=== PATIENT | male | born 1950 | race Caucasian/White ===

== ENCOUNTER 2018-04-06 11:50 | Inpatient (IN) | payer OTHER ==
[2018-04-06] VITALS (8 sets, daily range): BP systolic 109–150; BP diastolic 64–89
[~2018-04-06] VITALS: Ht 188 cm; Wt 119.3 kg
[2018-04-06 13:23] LABS: ALBUMIN 3.4 g/dL (3.2-4.8); CHLORIDE 109 mEq/L (99-109); POTASSIUM 4.6 mEq/L (3.7-5.4); SODIUM 138 mEq/L (136-147)
[2018-04-06 13:24] LABS: INTER. NORMALIZED RATIO 1.4
[2018-04-06 13:25] LABS: GLUCOSE 167 mg/dL (70-99)
[2018-04-06 13:26] LABS: PTT 21.8 SEC (25-37); TOTAL PROTEIN 5.9 g/dL (6.4-8.3)
[2018-04-06 13:27] LABS: TOTAL BILIRUBIN 0.8 mg/dL (0.0-1.0)
[2018-04-06 13:29] LABS: ALKALINE PHOSPHATASE 65 IU/L (3-129); CREATININE 3.8 mg/dL (0.6-1.3); GFR ESTIMATE (CALCULATED) 17 mL/min/ (58.99-99999)
[2018-04-06 13:30] LABS: UREA NITROGEN (BUN) 39 mg/dL (9-23)
[2018-04-06 13:31] LABS: AST (GOT) 12 IU/L (2-34)
[2018-04-06 13:32] LABS: ALT (GPT) 9 IU/L (3-49)
[2018-04-06 13:35] LABS: TROP-I INTERPRETATION NEGATIVE; TROPONIN-I 0.03 ng/mL (0.0-0.30)
[2018-04-06 13:36] LABS: APPEARANCE TURBID ((CLEAR)); BILIRUBIN NEGATIVE; BLOOD LARGE; GLUCOSE (STRIP) NEGATIVE; KETONES NEGATIVE; LEUKOCYTES NEGATIVE; NITRITE NEGATIVE; PROTEIN (STRIP) >=500; SPECIFIC GRAVITY 1.037 (1.000-1.030); UROBILINOGEN 0.2 MG/DL (0.2-1.0)
[2018-04-06 13:37] LABS: COLOR RED ((YELLOW)); RED BLOOD CELLS TNTC /HPF (0-5); UCUL ADDED? YES
[2018-04-06 13:40] LABS: BASOPHIL (%) 0.1 % (0-1); EOSINOPHIL (%) 0.1 % (0-5); HEMATOCRIT 16.1 % (38.0-50.0); MCH 24.7 PG (29.0-34.0); MCHC 29.8 G/DL (30.0-36.0); MONOCYTE (%) 7.7 % (3-12); MONOCYTE COUNT 1.3 K/uL (0-0.8); NEUTROPHIL (%) 85.1 % (45-76); NEUTROPHIL COUNT 14.8 K/uL (1.8-6.4); NRBC (%) 0.2 /100 WBC (0-0); PLATELET COUNT 337 K/uL (156-360); RBC DIS.WIDTH-CV 16.1 % (11.8-14.6); RBC DIS.WIDTH-SD 48.7 % (39-53); RED BLOOD COUNT 1.94 M/uL (4.00-5.50); WHITE BLOOD COUNT 17.4 K/uL (4.1-10.2)
[2018-04-06 13:50] LABS: HEMOGLOBIN 4.8 G/DL (12.5-16.6)
[2018-04-06 17:20] LABS: IMM.RETIC FRACTION 44.6 % (3-19); RETIC HGB EQUIVALENT 20.7 (28-36)
[2018-04-06 17:45] LABS: IRON 14 MCG/DL (35-150); TRANSFERRIN (TIBC) 275.7 mg/dL (215-380); TRANSFERRIN SATUR. 5 % (20-55)
[2018-04-06 17:46] LABS: INTACT PARATHYROID HORMONE 130 pg/mL (10-69)
[2018-04-06 17:53] LABS: THYROTROPIN (TSH) 4.4 MIU/L (0.4-5.5)
[2018-04-06 17:59] LABS: FERRITIN 17 NG/ML (22-322)
[2018-04-06 18:53] LABS: LACTATE DEHYDROGENASE 245 IU/L (20-246)
[2018-04-06 22:20] LABS: URINE TOTAL PROTEIN 154 MG/DL (0-10)
[2018-04-07] VITALS (11 sets, daily range): BP systolic 98–137; BP diastolic 54–88
[2018-04-07 06:42] LABS: MCH 25.7 PG (29.0-34.0); MCHC 30.9 G/DL (30.0-36.0); MCV 83.3 FL (86-99); NRBC (%) 0.5 /100 WBC (0-0); PLATELET COUNT 251 K/uL (156-360); RBC DIS.WIDTH-CV 15.4 % (11.8-14.6); RBC DIS.WIDTH-SD 46.5 % (39-53); WHITE BLOOD COUNT 17.1 K/uL (4.1-10.2)
[2018-04-07 06:43] LABS: HEMOGLOBIN 7.1 G/DL (12.5-16.6); RED BLOOD COUNT 2.76 M/uL (4.00-5.50)
[2018-04-07 06:59] LABS: CHLORIDE 107 MEQ/L (99-109); GFR ESTIMATE (CALCULATED) 14 mL/min/ (58.99-99999); GLUCOSE 121 mg/dL (70-99); PHOSPHORUS 5.1 mg/dL (2.5-4.9); POTASSIUM 4.7 MEQ/L (3.7-5.4); SODIUM 139 MEQ/L (136-147); UREA NITROGEN (BUN) 52 mg/dL (9-23)
[2018-04-07 07:00] LABS: CREATININE 4.6 MG/DL (0.6-1.3)
[2018-04-07 11:57] LABS: HEMATOCRIT 24.7 % (38.0-50.0); HEMOGLOBIN 7.9 G/DL (12.5-16.6); MCH 27.2 PG (29.0-34.0); MCV 85.2 FL (86-99); NRBC (%) 0.4 /100 WBC (0-0); PLATELET COUNT 215 K/uL (156-360); RBC DIS.WIDTH-CV 15.7 % (11.8-14.6); RBC DIS.WIDTH-SD 48.4 % (39-53); WHITE BLOOD COUNT 17.3 K/uL (4.1-10.2)
[2018-04-08] VITALS (10 sets, daily range): BP systolic 95–122; BP diastolic 51–68
[2018-04-08 06:02] LABS: CHLORIDE 109 MEQ/L (99-109); GFR ESTIMATE (CALCULATED) 24 mL/min/ (58.99-99999); GLUCOSE 109 mg/dL (70-99); POTASSIUM 4.6 MEQ/L (3.7-5.4); SODIUM 138 MEQ/L (136-147); UREA NITROGEN (BUN) 47 mg/dL (9-23)
[2018-04-08 06:10] LABS: CREATININE 2.8 MG/DL (0.6-1.3)
[2018-04-08 06:46] LABS: HEMATOCRIT 22.8 % (38.0-50.0); HEMOGLOBIN 7.3 G/DL (12.5-16.6); MCH 27.2 PG (29.0-34.0); MCV 85.1 FL (86-99); NRBC (%) 0.3 /100 WBC (0-0); PLATELET COUNT 189 K/uL (156-360); RBC DIS.WIDTH-CV 15.9 % (11.8-14.6); RBC DIS.WIDTH-SD 49.7 % (39-53); RED BLOOD COUNT 2.68 M/uL (4.00-5.50); WHITE BLOOD COUNT 13.2 K/uL (4.1-10.2)
[2018-04-08 12:23] LABS: HEMOGLOBIN A1c (GLYCOHEMOGLOB) 5.3 % (Below 5.7)
[2018-04-09] VITALS (11 sets, daily range): BP systolic 95–122; BP diastolic 49–71
[2018-04-09 05:26] LABS: HEMATOCRIT 23.3 % (38.0-50.0); HEMOGLOBIN 7.3 G/DL (12.5-16.6); MCH 26.6 PG (29.0-34.0); MCHC 31.3 G/DL (30.0-36.0); NRBC (%) 0.2 /100 WBC (0-0); PLATELET COUNT 161 K/uL (156-360); RBC DIS.WIDTH-CV 16.2 % (11.8-14.6); RBC DIS.WIDTH-SD 49.6 % (39-53); RED BLOOD COUNT 2.74 M/uL (4.00-5.50); WHITE BLOOD COUNT 11.9 K/uL (4.1-10.2)
[2018-04-09 05:49] LABS: CHLORIDE 109 MEQ/L (99-109); CREATININE 1.7 MG/DL (0.6-1.3); GFR ESTIMATE (CALCULATED) 43 mL/min/ (58.99-99999); GLUCOSE 90 mg/dL (70-99); SODIUM 139 MEQ/L (136-147); UREA NITROGEN (BUN) 31 mg/dL (9-23)
[2018-04-10] VITALS (7 sets, daily range): BP systolic 104–137; BP diastolic 59–96
[2018-04-10 05:57] LABS: BASOPHIL (%) 0.3 % (0-1); EOSINOPHIL (%) 2.7 % (0-5); EOSINOPHIL COUNT 0.3 K/uL (0-0.3); HEMATOCRIT 29.4 % (38.0-50.0); IMMATURE GRANULOCYTE (%) 1.1 % (0.0-0.7); LYMPHOCYTE COUNT 1.3 K/uL (1.0-2.8); MCH 27.4 PG (29.0-34.0); MCV 85.7 FL (86-99); MONOCYTE (%) 8.2 % (3-12); NEUTROPHIL (%) 76.7 % (45-76); PLATELET COUNT 197 K/uL (156-360); RBC DIS.WIDTH-CV 15.9 % (11.8-14.6); RBC DIS.WIDTH-SD 48.7 % (39-53); WHITE BLOOD COUNT 11.8 K/uL (4.1-10.2)
[2018-04-10 06:05] LABS: HEMOGLOBIN 9.4 G/DL (12.5-16.6); RED BLOOD COUNT 3.43 M/uL (4.00-5.50)
[2018-04-10 06:07] LABS: ALBUMIN 2.8 G/DL (3.2-4.8); ALKALINE PHOSPHATASE 68 IU/L (3-129); ALT (GPT) 12 IU/L (3-49); AST (GOT) 13 IU/L (2-34); CHLORIDE 107 MEQ/L (99-109); CREATININE 1.3 MG/DL (0.6-1.3); GFR ESTIMATE (CALCULATED) 59 mL/min/ (58.99-99999); GLUCOSE 126 mg/dL (70-99); POTASSIUM 3.8 MEQ/L (3.7-5.4); SODIUM 139 MEQ/L (136-147); TOTAL BILIRUBIN 0.7 MG/DL (0.0-1.0); TOTAL PROTEIN 5.3 G/DL (6.4-8.3); UREA NITROGEN (BUN) 22 mg/dL (9-23)
[2018-04-10 11:28] LABS: TROP-I INTERPRETATION NEGATIVE; TROPONIN-I 0.05 ng/mL (0.0-0.30)
[2018-04-10 16:41] LABS: TROP-I INTERPRETATION NEGATIVE; TROPONIN-I 0.04 ng/mL (0.0-0.30)
[2018-04-10 22:26] LABS: TROP-I INTERPRETATION NEGATIVE; TROPONIN-I 0.04 ng/mL (0.0-0.30)
[2018-04-11 03:45] VITALS: BP 117/83
[2018-04-11 05:19] LABS: BASOPHIL (%) 0.3 % (0-1); EOSINOPHIL COUNT 0.4 K/uL (0-0.3); HEMOGLOBIN 8.1 G/DL (12.5-16.6); IMMATURE GRANULOCYTE (%) 1.3 % (0.0-0.7); LYMPHOCYTE (%) 13.8 % (15-42); LYMPHOCYTE COUNT 1.6 K/uL (1.0-2.8); MCH 26.6 PG (29.0-34.0); MCHC 31.2 G/DL (30.0-36.0); MCV 85.5 FL (86-99); MONOCYTE (%) 8.4 % (3-12); NEUTROPHIL (%) 73.2 % (45-76); NEUTROPHIL COUNT 8.7 K/uL (1.8-6.4); PLATELET COUNT 196 K/uL (156-360); RBC DIS.WIDTH-CV 15.7 % (11.8-14.6); RBC DIS.WIDTH-SD 48.4 % (39-53); RED BLOOD COUNT 3.04 M/uL (4.00-5.50); WHITE BLOOD COUNT 11.9 K/uL (4.1-10.2)
[2018-04-11 06:11] LABS: ALBUMIN 2.4 G/DL (3.2-4.8); ALKALINE PHOSPHATASE 54 IU/L (3-129); ALT (GPT) 13 IU/L (3-49); AST (GOT) 14 IU/L (2-34); CHLORIDE 108 MEQ/L (99-109); CREATININE 1.1 MG/DL (0.6-1.3); GFR ESTIMATE (CALCULATED) > 59 mL/min/ (58.99-99999); GLUCOSE 101 mg/dL (70-99); POTASSIUM 4.3 MEQ/L (3.7-5.4); SODIUM 142 MEQ/L (136-147); TOTAL BILIRUBIN 0.7 MG/DL (0.0-1.0); UREA NITROGEN (BUN) 15 mg/dL (9-23)
[2018-04-11 06:20] LABS: TOTAL PROTEIN 4.5 G/DL (6.4-8.3)
[2018-04-11 07:23] VITALS: BP 106/60
[2018-04-11 11:43] VITALS: BP 111/59
[2018-04-11 14:21] LABS: HEMATOCRIT 29.5 % (38.0-50.0); HEMOGLOBIN 9.3 G/DL (12.5-16.6); MCV 85.5 FL (86-99)
[2018-04-11 15:13] VITALS: BP 111/65
[2018-04-11 19:15] VITALS: BP 114/57
[2018-04-11 22:30] VITALS: BP 107/67
[2018-04-12 03:33] VITALS: BP 120/69
[2018-04-12 06:01] LABS: BASOPHIL (%) 0.3 % (0-1); EOSINOPHIL (%) 2.3 % (0-5); EOSINOPHIL COUNT 0.3 K/uL (0-0.3); HEMATOCRIT 24.9 % (38.0-50.0); HEMOGLOBIN 7.8 G/DL (12.5-16.6); LYMPHOCYTE (%) 12.5 % (15-42); LYMPHOCYTE COUNT 1.4 K/uL (1.0-2.8); MCH 26.9 PG (29.0-34.0); MCHC 31.3 G/DL (30.0-36.0); MCV 85.9 FL (86-99); MONOCYTE (%) 7.1 % (3-12); MONOCYTE COUNT 0.8 K/uL (0-0.8); NEUTROPHIL (%) 76.8 % (45-76); NEUTROPHIL COUNT 8.3 K/uL (1.8-6.4); PLATELET COUNT 215 K/uL (156-360); RBC DIS.WIDTH-CV 15.7 % (11.8-14.6); RBC DIS.WIDTH-SD 49.4 % (39-53); WHITE BLOOD COUNT 10.8 K/uL (4.1-10.2)
[2018-04-12 06:35] LABS: ALBUMIN 2.4 G/DL (3.2-4.8); ALKALINE PHOSPHATASE 55 IU/L (3-129); ALT (GPT) 12 IU/L (3-49); CHLORIDE 106 MEQ/L (99-109); GFR ESTIMATE (CALCULATED) > 59 mL/min/ (58.99-99999); GLUCOSE 93 mg/dL (70-99); POTASSIUM 4.4 MEQ/L (3.7-5.4); SODIUM 139 MEQ/L (136-147); TOTAL BILIRUBIN 0.6 MG/DL (0.0-1.0); TOTAL PROTEIN 4.8 G/DL (6.4-8.3); UREA NITROGEN (BUN) 12 mg/dL (9-23)
[2018-04-12 06:43] LABS: AST (GOT) 21 IU/L (2-34)
[2018-04-12 08:11] VITALS: BP 125/75
[2018-04-12 12:04] VITALS: BP 124/81
[2018-04-12 14:19] LABS: HEMATOCRIT 25.3 % (38.0-50.0); HEMOGLOBIN 7.9 G/DL (12.5-16.6); MCV 85.5 FL (86-99)
[2018-04-12 15:12] VITALS: BP 131/74
[2018-04-12 19:30] VITALS: BP 134/79
[2018-04-13] VITALS (15 sets, daily range): BP systolic 105–142; BP diastolic 56–71
[2018-04-13 05:13] LABS: BASOPHIL (%) 0.3 % (0-1); EOSINOPHIL (%) 2.4 % (0-5); EOSINOPHIL COUNT 0.3 K/uL (0-0.3); HEMATOCRIT 23.3 % (38.0-50.0); HEMOGLOBIN 7.2 G/DL (12.5-16.6); IMMATURE GRANULOCYTE (%) 1.1 % (0.0-0.7); LYMPHOCYTE (%) 12.4 % (15-42); LYMPHOCYTE COUNT 1.5 K/uL (1.0-2.8); MCH 26.6 PG (29.0-34.0); MCHC 30.9 G/DL (30.0-36.0); MONOCYTE (%) 6.6 % (3-12); MONOCYTE COUNT 0.8 K/uL (0-0.8); NEUTROPHIL (%) 77.2 % (45-76); NEUTROPHIL COUNT 9.1 K/uL (1.8-6.4); PLATELET COUNT 220 K/uL (156-360); RBC DIS.WIDTH-CV 15.8 % (11.8-14.6); RBC DIS.WIDTH-SD 49.4 % (39-53); RED BLOOD COUNT 2.71 M/uL (4.00-5.50); WHITE BLOOD COUNT 11.8 K/uL (4.1-10.2)
[2018-04-13 06:06] LABS: ALBUMIN 2.6 G/DL (3.2-4.8); ALKALINE PHOSPHATASE 52 IU/L (3-129); ALT (GPT) 13 IU/L (3-49); CHLORIDE 103 MEQ/L (99-109); GFR ESTIMATE (CALCULATED) > 59 mL/min/ (58.99-99999); GLUCOSE 99 mg/dL (70-99); POTASSIUM 4.4 MEQ/L (3.7-5.4); SODIUM 137 MEQ/L (136-147); TOTAL BILIRUBIN 0.6 MG/DL (0.0-1.0); TOTAL PROTEIN 4.9 G/DL (6.4-8.3); UREA NITROGEN (BUN) 12 mg/dL (9-23)
[2018-04-13 06:13] LABS: AST (GOT) 11 IU/L (2-34)
[2018-04-13 22:02] LABS: HEMATOCRIT 25.4 % (38.0-50.0); HEMOGLOBIN 8.4 G/DL (12.5-16.6); MCV 84.1 FL (86-99)
[2018-04-14] VITALS (7 sets, daily range): BP systolic 113–145; BP diastolic 61–89
[2018-04-14 05:15] LABS: BASOPHIL (%) 0.3 % (0-1); EOSINOPHIL (%) 2.6 % (0-5); EOSINOPHIL COUNT 0.3 K/uL (0-0.3); HEMATOCRIT 25.1 % (38.0-50.0); HEMOGLOBIN 8.1 G/DL (12.5-16.6); IMMATURE GRANULOCYTE (%) 0.8 % (0.0-0.7); LYMPHOCYTE (%) 11.4 % (15-42); LYMPHOCYTE COUNT 1.4 K/uL (1.0-2.8); MCH 27.4 PG (29.0-34.0); MCHC 32.3 G/DL (30.0-36.0); MCV 84.8 FL (86-99); MONOCYTE COUNT 0.7 K/uL (0-0.8); NEUTROPHIL (%) 78.9 % (45-76); NEUTROPHIL COUNT 9.6 K/uL (1.8-6.4); PLATELET COUNT 229 K/uL (156-360); RBC DIS.WIDTH-CV 15.3 % (11.8-14.6); RBC DIS.WIDTH-SD 46.5 % (39-53); RED BLOOD COUNT 2.96 M/uL (4.00-5.50); WHITE BLOOD COUNT 12.2 K/uL (4.1-10.2)
[2018-04-14 06:07] LABS: ALBUMIN 2.5 G/DL (3.2-4.8); ALKALINE PHOSPHATASE 53 IU/L (3-129); ALT (GPT) 13 IU/L (3-49); AST (GOT) 13 IU/L (2-34); CHLORIDE 107 MEQ/L (99-109); GFR ESTIMATE (CALCULATED) > 59 mL/min/ (58.99-99999); GLUCOSE 101 mg/dL (70-99); POTASSIUM 4.4 MEQ/L (3.7-5.4); SODIUM 137 MEQ/L (136-147); TOTAL PROTEIN 4.8 G/DL (6.4-8.3); UREA NITROGEN (BUN) 13 mg/dL (9-23)
[2018-04-14 06:08] LABS: TOTAL BILIRUBIN 0.9 MG/DL (0.0-1.0)
[2018-04-14 12:04] LABS: INTER. NORMALIZED RATIO 1.3
[2018-04-14 12:06] LABS: PTT 26.8 SEC (25-37)
[2018-04-15] VITALS (7 sets, daily range): BP systolic 106–133; BP diastolic 56–73
[2018-04-15 05:38] LABS: BASOPHIL (%) 0.3 % (0-1); EOSINOPHIL (%) 3.4 % (0-5); EOSINOPHIL COUNT 0.4 K/uL (0-0.3); HEMATOCRIT 24.4 % (38.0-50.0); HEMOGLOBIN 7.6 G/DL (12.5-16.6); IMMATURE GRANULOCYTE (%) 0.8 % (0.0-0.7); LYMPHOCYTE (%) 11.5 % (15-42); LYMPHOCYTE COUNT 1.5 K/uL (1.0-2.8); MCH 26.4 PG (29.0-34.0); MCHC 31.1 G/DL (30.0-36.0); MCV 84.7 FL (86-99); MONOCYTE (%) 6.2 % (3-12); MONOCYTE COUNT 0.8 K/uL (0-0.8); NEUTROPHIL (%) 77.8 % (45-76); NEUTROPHIL COUNT 9.9 K/uL (1.8-6.4); PLATELET COUNT 275 K/uL (156-360); RBC DIS.WIDTH-CV 15.2 % (11.8-14.6); RBC DIS.WIDTH-SD 46.9 % (39-53); RED BLOOD COUNT 2.88 M/uL (4.00-5.50); WHITE BLOOD COUNT 12.7 K/uL (4.1-10.2)
[2018-04-15 06:09] LABS: ALBUMIN 2.7 G/DL (3.2-4.8); ALKALINE PHOSPHATASE 51 IU/L (3-129); ALT (GPT) 13 IU/L (3-49); AST (GOT) 15 IU/L (2-34); CHLORIDE 107 MEQ/L (99-109); GFR ESTIMATE (CALCULATED) > 59 mL/min/ (58.99-99999); GLUCOSE 99 mg/dL (70-99); POTASSIUM 4.4 MEQ/L (3.7-5.4); SODIUM 138 MEQ/L (136-147); TOTAL PROTEIN 5.2 G/DL (6.4-8.3); UREA NITROGEN (BUN) 12 mg/dL (9-23)
[2018-04-15 06:10] LABS: TOTAL BILIRUBIN 0.6 MG/DL (0.0-1.0)
[2018-04-16] VITALS (7 sets, daily range): BP systolic 97–113; BP diastolic 58–68
[2018-04-16 05:49] LABS: BASOPHIL (%) 0.3 % (0-1); EOSINOPHIL (%) 2.6 % (0-5); EOSINOPHIL COUNT 0.3 K/uL (0-0.3); HEMATOCRIT 25.7 % (38.0-50.0); HEMOGLOBIN 8.2 G/DL (12.5-16.6); IMMATURE GRANULOCYTE (%) 0.6 % (0.0-0.7); LYMPHOCYTE (%) 10.6 % (15-42); LYMPHOCYTE COUNT 1.1 K/uL (1.0-2.8); MCH 27.2 PG (29.0-34.0); MCHC 31.9 G/DL (30.0-36.0); MCV 85.4 FL (86-99); MONOCYTE COUNT 0.8 K/uL (0-0.8); NEUTROPHIL (%) 78.9 % (45-76); NEUTROPHIL COUNT 8.5 K/uL (1.8-6.4); PLATELET COUNT 258 K/uL (156-360); RBC DIS.WIDTH-CV 15.5 % (11.8-14.6); RED BLOOD COUNT 3.01 M/uL (4.00-5.50); WHITE BLOOD COUNT 10.8 K/uL (4.1-10.2)
[2018-04-16 06:10] LABS: ALBUMIN 2.5 G/DL (3.2-4.8); ALKALINE PHOSPHATASE 48 IU/L (3-129); ALT (GPT) 10 IU/L (3-49); AST (GOT) 19 IU/L (2-34); CHLORIDE 105 MEQ/L (99-109); GFR ESTIMATE (CALCULATED) > 59 mL/min/ (58.99-99999); GLUCOSE 98 mg/dL (70-99); POTASSIUM 4.8 MEQ/L (3.7-5.4); SODIUM 138 MEQ/L (136-147); TOTAL BILIRUBIN 0.7 MG/DL (0.0-1.0); TOTAL PROTEIN 4.8 G/DL (6.4-8.3); UREA NITROGEN (BUN) 11 mg/dL (9-23)
[2018-04-17] VITALS (7 sets, daily range): BP systolic 97–116; BP diastolic 56–79
[2018-04-17 05:52] LABS: HEMATOCRIT 25.1 % (38.0-50.0); HEMOGLOBIN 7.9 G/DL (12.5-16.6); MCH 27.1 PG (29.0-34.0); MCHC 31.5 G/DL (30.0-36.0); MCV 86.3 FL (86-99); PLATELET COUNT 263 K/uL (156-360); RBC DIS.WIDTH-CV 15.5 % (11.8-14.6); RED BLOOD COUNT 2.91 M/uL (4.00-5.50); WHITE BLOOD COUNT 10.5 K/uL (4.1-10.2)
[2018-04-17 10:51] LABS: CHLORIDE 107 mEq/L (99-109); POTASSIUM 4.2 mEq/L (3.7-5.4); SODIUM 139 mEq/L (136-147)
[2018-04-17 10:52] LABS: MAGNESIUM 1.9 mg/dL (1.3-2.7)
[2018-04-17 10:53] LABS: GLUCOSE 143 mg/dL (70-99)
[2018-04-17 10:57] LABS: GFR ESTIMATE (CALCULATED) > 59 mL/min/ (58.99-99999)
[2018-04-17 10:58] LABS: UREA NITROGEN (BUN) 11 mg/dL (9-23)
[2018-04-17 11:04] LABS: TROP-I INTERPRETATION NEGATIVE; TROPONIN-I 0.03 ng/mL (0.0-0.30)
[2018-04-18 04:00] VITALS: BP 116/69
[2018-04-18 05:48] LABS: HEMATOCRIT 25.8 % (38.0-50.0); HEMOGLOBIN 8.1 G/DL (12.5-16.6); MCH 26.8 PG (29.0-34.0); MCHC 31.4 G/DL (30.0-36.0); MCV 85.4 FL (86-99); RBC DIS.WIDTH-CV 15.4 % (11.8-14.6); RBC DIS.WIDTH-SD 47.8 % (39-53); RED BLOOD COUNT 3.02 M/uL (4.00-5.50); WHITE BLOOD COUNT 11.6 K/uL (4.1-10.2)
[2018-04-18 06:48] LABS: CHLORIDE 106 MEQ/L (99-109); GFR ESTIMATE (CALCULATED) > 59 mL/min/ (58.99-99999); GLUCOSE 87 mg/dL (70-99); POTASSIUM 4.4 MEQ/L (3.7-5.4); SODIUM 139 MEQ/L (136-147); UREA NITROGEN (BUN) 12 mg/dL (9-23)
[2018-04-18 07:31] LABS: DIGOXIN 0.6 ng/mL (0.8-2.0)
[2018-04-18 07:45] VITALS: BP 137/67
[2018-04-18 07:46] LABS: PLAT.SUFFICIENCY ADEQUATE; PLATELET COUNT 256 K/uL (156-360)
[2018-04-18 13:05] VITALS: BP 117/69
[2018-04-18 16:07] VITALS: BP 127/81
[2018-04-18 19:45] VITALS: BP 117/76
[2018-04-18 23:44] VITALS: BP 116/65
[2018-04-19 03:59] VITALS: BP 110/69
[2018-04-19 05:52] LABS: HEMATOCRIT 24.4 % (38.0-50.0); HEMOGLOBIN 7.8 G/DL (12.5-16.6); MCH 27.1 PG (29.0-34.0); MCV 84.7 FL (86-99); PLATELET COUNT 285 K/uL (156-360); RBC DIS.WIDTH-CV 15.1 % (11.8-14.6); RBC DIS.WIDTH-SD 46.8 % (39-53); RED BLOOD COUNT 2.88 M/uL (4.00-5.50); WHITE BLOOD COUNT 10.8 K/uL (4.1-10.2)
[2018-04-19 07:04] VITALS: BP 129/69
[2018-04-19 11:35] VITALS: BP 109/57
[2018-04-19 15:23] VITALS: BP 121/66
[2018-04-19 19:55] VITALS: BP 122/65
[2018-04-19 23:06] VITALS: BP 118/64
[2018-04-20 04:31] VITALS: BP 129/60
[2018-04-20 07:10] VITALS: BP 108/74
[2018-04-20 11:27] VITALS: BP 101/64
[2018-04-20 14:52] VITALS: BP 106/60
[2018-04-20 20:26] VITALS: BP 111/65
[2018-04-20 23:31] VITALS: BP 116/59
[2018-04-21 04:10] VITALS: BP 109/60
[2018-04-21 07:01] VITALS: BP 105/68
[2018-04-21 11:17] VITALS: BP 98/54
[2018-04-21 14:22] LABS: HEMATOCRIT 25.6 % (38.0-50.0); HEMOGLOBIN 8.1 G/DL (12.5-16.6); MCH 27.1 PG (29.0-34.0); MCHC 31.6 G/DL (30.0-36.0); MCV 85.6 FL (86-99); PLATELET COUNT 304 K/uL (156-360); RBC DIS.WIDTH-CV 14.7 % (11.8-14.6); RED BLOOD COUNT 2.99 M/uL (4.00-5.50); WHITE BLOOD COUNT 11.2 K/uL (4.1-10.2)
[2018-04-21 15:00] VITALS: BP 94/57
[2018-04-21 19:10] VITALS: BP 113/83
[2018-04-21 23:10] VITALS: BP 116/80
[2018-04-22] VITALS (12 sets, daily range): BP systolic 94–125; BP diastolic 53–73
[2018-04-22 05:46] LABS: HEMATOCRIT 23.1 % (38.0-50.0); HEMOGLOBIN 7.3 G/DL (12.5-16.6); MCH 26.7 PG (29.0-34.0); MCHC 31.6 G/DL (30.0-36.0); MCV 84.6 FL (86-99); PLATELET COUNT 288 K/uL (156-360); RBC DIS.WIDTH-SD 45.9 % (39-53); RED BLOOD COUNT 2.73 M/uL (4.00-5.50); WHITE BLOOD COUNT 9.9 K/uL (4.1-10.2)
[2018-04-23] VITALS (12 sets, daily range): BP systolic 91–127; BP diastolic 50–74
[2018-04-23 05:45] LABS: HEMATOCRIT 26.9 % (38.0-50.0); HEMOGLOBIN 8.4 G/DL (12.5-16.6); MCH 26.8 PG (29.0-34.0); MCHC 31.2 G/DL (30.0-36.0); MCV 85.7 FL (86-99); PLATELET COUNT 303 K/uL (156-360); RBC DIS.WIDTH-CV 14.8 % (11.8-14.6); RBC DIS.WIDTH-SD 45.8 % (39-53); RED BLOOD COUNT 3.14 M/uL (4.00-5.50); WHITE BLOOD COUNT 11.7 K/uL (4.1-10.2)
[2018-04-23 06:05] LABS: CHLORIDE 103 MEQ/L (99-109); GFR ESTIMATE (CALCULATED) > 59 mL/min/ (58.99-99999); GLUCOSE 87 mg/dL (70-99); POTASSIUM 4.5 MEQ/L (3.7-5.4); SODIUM 136 MEQ/L (136-147); UREA NITROGEN (BUN) 17 mg/dL (9-23)
[2018-04-23 21:54] LABS: HEMATOCRIT 29.1 % (38.0-50.0); HEMOGLOBIN 9.6 G/DL (12.5-16.6); MCV 83.6 FL (86-99)
[2018-04-24] VITALS (7 sets, daily range): BP systolic 98–120; BP diastolic 62–75
[2018-04-24 05:55] LABS: BASOPHIL (%) 0.5 % (0-1); BASOPHIL COUNT 0.1 K/uL (0-0.1); EOSINOPHIL (%) 2.8 % (0-5); EOSINOPHIL COUNT 0.4 K/uL (0-0.3); HEMATOCRIT 28.2 % (38.0-50.0); HEMOGLOBIN 9.1 G/DL (12.5-16.6); IMMATURE GRANULOCYTE (%) 0.8 % (0.0-0.7); LYMPHOCYTE (%) 11.5 % (15-42); LYMPHOCYTE COUNT 1.4 K/uL (1.0-2.8); MCH 27.3 PG (29.0-34.0); MCHC 32.3 G/DL (30.0-36.0); MCV 84.7 FL (86-99); MONOCYTE (%) 8.2 % (3-12); NEUTROPHIL (%) 76.2 % (45-76); NEUTROPHIL COUNT 9.5 K/uL (1.8-6.4); PLATELET COUNT 278 K/uL (156-360); RBC DIS.WIDTH-CV 14.9 % (11.8-14.6); RBC DIS.WIDTH-SD 45.7 % (39-53); RED BLOOD COUNT 3.33 M/uL (4.00-5.50); WHITE BLOOD COUNT 12.5 K/uL (4.1-10.2)
[2018-04-24 06:07] LABS: CHLORIDE 104 MEQ/L (99-109); GFR ESTIMATE (CALCULATED) > 59 mL/min/ (58.99-99999); GLUCOSE 96 mg/dL (70-99); POTASSIUM 3.9 MEQ/L (3.7-5.4); SODIUM 137 MEQ/L (136-147); UREA NITROGEN (BUN) 16 mg/dL (9-23)
[2018-04-25 04:00] LABS: BASOPHIL (%) 0.3 % (0-1); EOSINOPHIL COUNT 0.4 K/uL (0-0.3); HEMATOCRIT 26.1 % (38.0-50.0); HEMOGLOBIN 8.5 G/DL (12.5-16.6); IMMATURE GRANULOCYTE (%) 0.6 % (0.0-0.7); LYMPHOCYTE (%) 10.8 % (15-42); LYMPHOCYTE COUNT 1.3 K/uL (1.0-2.8); MCH 27.5 PG (29.0-34.0); MCHC 32.6 G/DL (30.0-36.0); MCV 84.5 FL (86-99); MONOCYTE (%) 8.2 % (3-12); NEUTROPHIL (%) 77.1 % (45-76); NEUTROPHIL COUNT 9.3 K/uL (1.8-6.4); PLATELET COUNT 246 K/uL (156-360); RBC DIS.WIDTH-CV 15.1 % (11.8-14.6); RBC DIS.WIDTH-SD 45.5 % (39-53); RED BLOOD COUNT 3.09 M/uL (4.00-5.50); WHITE BLOOD COUNT 12.1 K/uL (4.1-10.2)
[2018-04-25 04:14] LABS: CHLORIDE 105 mEq/L (99-109); POTASSIUM 4.3 mEq/L (3.7-5.4); SODIUM 136 mEq/L (136-147)
[2018-04-25 04:16] LABS: GLUCOSE 91 mg/dL (70-99)
[2018-04-25 04:20] LABS: CREATININE 0.9 mg/dL (0.6-1.3); GFR ESTIMATE (CALCULATED) > 59 mL/min/ (58.99-99999)
[2018-04-25 04:21] LABS: UREA NITROGEN (BUN) 11 mg/dL (9-23)
[2018-04-25 04:30] VITALS: BP 117/62
[2018-04-25 07:44] VITALS: BP 117/78
[2018-04-25 17:41] VITALS: BP 125/73
[2018-04-25 19:35] LABS: HEMATOCRIT 27.1 % (38.0-50.0); HEMOGLOBIN 8.7 G/DL (12.5-16.6); MCHC 32.1 G/DL (30.0-36.0); MCV 87.1 FL (86-99); PLATELET COUNT 190 K/uL (156-360); RBC DIS.WIDTH-CV 15.1 % (11.8-14.6); RED BLOOD COUNT 3.11 M/uL (4.00-5.50); WHITE BLOOD COUNT 11.1 K/uL (4.1-10.2)
[2018-04-25 19:55] LABS: CHLORIDE 108 MEQ/L (99-109); CREATININE 1.1 MG/DL (0.6-1.3); GFR ESTIMATE (CALCULATED) > 59 mL/min/ (58.99-99999); POTASSIUM 4.6 MEQ/L (3.7-5.4); SODIUM 136 MEQ/L (136-147); UREA NITROGEN (BUN) 13 mg/dL (9-23)
[2018-04-25 20:00] VITALS: BP 102/67
[2018-04-25 20:17] LABS: GLUCOSE 179 mg/dL (70-99)
[2018-04-25 23:53] VITALS: BP 93/52
[2018-04-26] VITALS (11 sets, daily range): BP systolic 85–144; BP diastolic 50–81
[2018-04-26 05:33] LABS: BASOPHIL (%) 0.1 % (0-1); EOSINOPHIL (%) 0 % (0-5); HEMATOCRIT 25.5 % (38.0-50.0); HEMOGLOBIN 8.1 G/DL (12.5-16.6); IMMATURE GRANULOCYTE (%) 0.5 % (0.0-0.7); LYMPHOCYTE COUNT 0.8 K/uL (1.0-2.8); MCH 27.4 PG (29.0-34.0); MCHC 31.8 G/DL (30.0-36.0); MCV 86.1 FL (86-99); MONOCYTE (%) 10.6 % (3-12); MONOCYTE COUNT 1.2 K/uL (0-0.8); NEUTROPHIL (%) 81.8 % (45-76); PLATELET COUNT 230 K/uL (156-360); RBC DIS.WIDTH-CV 15.2 % (11.8-14.6); RBC DIS.WIDTH-SD 47.4 % (39-53); RED BLOOD COUNT 2.96 M/uL (4.00-5.50); WHITE BLOOD COUNT 10.9 K/uL (4.1-10.2)
[2018-04-26 06:09] LABS: CHLORIDE 111 MEQ/L (99-109); CREATININE 1.2 MG/DL (0.6-1.3); GFR ESTIMATE (CALCULATED) > 59 mL/min/ (58.99-99999); POTASSIUM 4.5 MEQ/L (3.7-5.4); SODIUM 136 MEQ/L (136-147); UREA NITROGEN (BUN) 16 mg/dL (9-23)
[2018-04-26 06:21] LABS: GLUCOSE 110 mg/dL (70-99)
[2018-04-27 04:00] VITALS: BP 111/63
[2018-04-27 06:07] LABS: CHLORIDE 113 MEQ/L (99-109); CREATININE 1.1 MG/DL (0.6-1.3); GFR ESTIMATE (CALCULATED) > 59 mL/min/ (58.99-99999); GLUCOSE 97 mg/dL (70-99); POTASSIUM 4.6 MEQ/L (3.7-5.4); SODIUM 140 MEQ/L (136-147); UREA NITROGEN (BUN) 17 mg/dL (9-23)
[2018-04-27 07:27] LABS: BASOPHIL (%) 0.3 % (0-1); EOSINOPHIL (%) 0.6 % (0-5); EOSINOPHIL COUNT 0.1 K/uL (0-0.3); HEMATOCRIT 29.1 % (38.0-50.0); HEMOGLOBIN 9.3 G/DL (12.5-16.6); IMMATURE GRANULOCYTE (%) 0.7 % (0.0-0.7); LYMPHOCYTE (%) 5.3 % (15-42); LYMPHOCYTE COUNT 0.6 K/uL (1.0-2.8); MCV 87.7 FL (86-99); MONOCYTE (%) 8.8 % (3-12); MONOCYTE COUNT 1.1 K/uL (0-0.8); NEUTROPHIL (%) 84.3 % (45-76); NEUTROPHIL COUNT 10.1 K/uL (1.8-6.4); PLATELET COUNT 222 K/uL (156-360); RBC DIS.WIDTH-CV 15.7 % (11.8-14.6); RBC DIS.WIDTH-SD 50.2 % (39-53); RED BLOOD COUNT 3.32 M/uL (4.00-5.50); WHITE BLOOD COUNT 11.9 K/uL (4.1-10.2)
[2018-04-27 07:51] VITALS: BP 116/65; BP 129/56
[2018-04-27 11:42] VITALS: BP 119/81
[2018-04-27 17:00] VITALS: BP 127/77
[2018-04-27 19:24] VITALS: BP 110/66
[2018-04-27 23:21] VITALS: BP 126/79
[2018-04-28 03:30] VITALS: BP 135/83
[2018-04-28 05:47] LABS: BASOPHIL (%) 0.4 % (0-1); EOSINOPHIL (%) 1.9 % (0-5); EOSINOPHIL COUNT 0.2 K/uL (0-0.3); HEMATOCRIT 28.7 % (38.0-50.0); HEMOGLOBIN 8.8 G/DL (12.5-16.6); IMMATURE GRANULOCYTE (%) 0.5 % (0.0-0.7); LYMPHOCYTE (%) 8.6 % (15-42); LYMPHOCYTE COUNT 0.9 K/uL (1.0-2.8); MCH 27.4 PG (29.0-34.0); MCHC 30.7 G/DL (30.0-36.0); MCV 89.4 FL (86-99); MONOCYTE (%) 8.7 % (3-12); MONOCYTE COUNT 0.9 K/uL (0-0.8); NEUTROPHIL (%) 79.9 % (45-76); NEUTROPHIL COUNT 8.2 K/uL (1.8-6.4); PLATELET COUNT 255 K/uL (156-360); RBC DIS.WIDTH-CV 15.6 % (11.8-14.6); RBC DIS.WIDTH-SD 51.1 % (39-53); RED BLOOD COUNT 3.21 M/uL (4.00-5.50); WHITE BLOOD COUNT 10.3 K/uL (4.1-10.2)
[2018-04-28 06:18] LABS: ALBUMIN 2.1 G/DL (3.2-4.8); ALKALINE PHOSPHATASE 57 IU/L (3-129); ALT (GPT) 7 IU/L (3-49); AST (GOT) 10 IU/L (2-34); CHLORIDE 113 MEQ/L (99-109); GFR ESTIMATE (CALCULATED) > 59 mL/min/ (58.99-99999); GLUCOSE 110 mg/dL (70-99); POTASSIUM 3.9 MEQ/L (3.7-5.4); SODIUM 140 MEQ/L (136-147); TOTAL BILIRUBIN 0.5 MG/DL (0.0-1.0); TOTAL PROTEIN 4.1 G/DL (6.4-8.3); UREA NITROGEN (BUN) 16 mg/dL (9-23)
[2018-04-28 07:52] VITALS: BP 117/79
[2018-04-28 11:36] VITALS: BP 126/77
[2018-04-28 16:57] VITALS: BP 126/76
[2018-04-28 19:22] VITALS: BP 134/80
[2018-04-29] VITALS (8 sets, daily range): BP systolic 121–162; BP diastolic 64–91
[2018-04-29 05:39] LABS: ABSOLUTE RETICULOCYTE CT. 0.12 M/uL (0.02-0.08); BASOPHIL (%) 0.3 % (0-1); EOSINOPHIL (%) 0.8 % (0-5); EOSINOPHIL COUNT 0.1 K/uL (0-0.3); HEMOGLOBIN 9.9 G/DL (12.5-16.6); IMMATURE GRANULOCYTE (%) 0.9 % (0.0-0.7); LYMPHOCYTE (%) 5.7 % (15-42); LYMPHOCYTE COUNT 0.7 K/uL (1.0-2.8); MCH 28.4 PG (29.0-34.0); MCHC 31.9 G/DL (30.0-36.0); MCV 88.8 FL (86-99); MONOCYTE (%) 6.3 % (3-12); MONOCYTE COUNT 0.7 K/uL (0-0.8); NEUTROPHIL COUNT 10.2 K/uL (1.8-6.4); PLATELET COUNT 310 K/uL (156-360); RBC DIS.WIDTH-CV 15.4 % (11.8-14.6); RBC DIS.WIDTH-SD 50.3 % (39-53); RED BLOOD COUNT 3.49 M/uL (4.00-5.50); RETIC HGB EQUIVALENT 27.5 (28-36); WHITE BLOOD COUNT 11.8 K/uL (4.1-10.2)
[2018-04-29 05:43] LABS: RETICULOCYTE COUNT 3.4 % (0.5-1.8)
[2018-04-29 06:52] LABS: ALKALINE PHOSPHATASE 52 IU/L (3-129); ALT (GPT) 6 IU/L (3-49); AST (GOT) 10 IU/L (2-34); CHLORIDE 113 MEQ/L (99-109); CREATININE 0.9 MG/DL (0.6-1.3); GFR ESTIMATE (CALCULATED) > 59 mL/min/ (58.99-99999); GLUCOSE 125 mg/dL (70-99); POTASSIUM 3.9 MEQ/L (3.7-5.4); SODIUM 140 MEQ/L (136-147); TOTAL BILIRUBIN 0.6 MG/DL (0.0-1.0); TOTAL PROTEIN 4.6 G/DL (6.4-8.3); TRANSFERRIN (TIBC) 165.9 mg/dL (215-380); UREA NITROGEN (BUN) 14 mg/dL (9-23)
[2018-04-29 06:53] LABS: IRON < 10 MCG/DL (35-150); TRANSFERRIN SATUR. 6 % (20-55)
[2018-04-29 08:35] LABS: FOLIC ACID (FOLATE) 10.7 NG/ML (5.0-22.0)
[2018-04-29 10:29] LABS: FERRITIN 157 NG/ML (22-322)
[2018-04-30 03:47] VITALS: BP 118/67
[2018-04-30 08:12] VITALS: BP 115/58
[2018-04-30 12:10] VITALS: BP 130/78
[2018-04-30 16:54] VITALS: BP 137/75
[2018-04-30 21:00] VITALS: BP 132/76
[2018-04-30 23:33] VITALS: BP 140/83
[2018-05-01 04:00] VITALS: BP 138/78
[2018-05-01 08:27] VITALS: BP 120/86
[2018-05-01 12:00] VITALS: BP 126/68
[2018-05-01 16:31] VITALS: BP 138/78
[2018-05-01 20:15] VITALS: BP 130/70
[2018-05-02 00:30] VITALS: BP 142/64
[2018-05-02 04:39] VITALS: BP 140/62
[2018-05-02 05:36] LABS: BASOPHIL (%) 0.4 % (0-1); EOSINOPHIL (%) 1.2 % (0-5); EOSINOPHIL COUNT 0.1 K/uL (0-0.3); HEMATOCRIT 31.3 % (38.0-50.0); LYMPHOCYTE (%) 9.3 % (15-42); LYMPHOCYTE COUNT 1.1 K/uL (1.0-2.8); MCH 27.5 PG (29.0-34.0); MCHC 31.9 G/DL (30.0-36.0); MONOCYTE (%) 6.9 % (3-12); MONOCYTE COUNT 0.8 K/uL (0-0.8); NEUTROPHIL (%) 81.2 % (45-76); NEUTROPHIL COUNT 9.1 K/uL (1.8-6.4); PLATELET COUNT 294 K/uL (156-360); RBC DIS.WIDTH-CV 14.6 % (11.8-14.6); RBC DIS.WIDTH-SD 46.6 % (39-53); RED BLOOD COUNT 3.64 M/uL (4.00-5.50); WHITE BLOOD COUNT 11.2 K/uL (4.1-10.2)
[2018-05-02 06:16] LABS: CHLORIDE 111 MEQ/L (99-109); CREATININE 0.8 MG/DL (0.6-1.3); GFR ESTIMATE (CALCULATED) > 59 mL/min/ (58.99-99999); GLUCOSE 97 mg/dL (70-99); POTASSIUM 3.8 MEQ/L (3.7-5.4); SODIUM 142 MEQ/L (136-147); UREA NITROGEN (BUN) 17 mg/dL (9-23)
[2018-05-02 06:59] VITALS: BP 136/80
[2018-05-02 11:15] VITALS: BP 121/75
[2018-05-02 14:49] VITALS: BP 111/75
[2018-05-02 19:35] VITALS: BP 110/70
[2018-05-03] VITALS (7 sets, daily range): BP systolic 115–138; BP diastolic 65–81
[2018-05-04 01:09] VITALS: BP 112/65
[2018-05-04 06:03] VITALS: BP 118/71
[2018-05-04 08:45] VITALS: BP 126/85
[2018-05-04] MEDS ORDERED: DUONEB 2.5-0.5 M3 ML PEP (11:43)
[2018-05-04] MEDS ORDERED: TYLENOL REGULA325 MG PO (11:43)
[2018-05-04] MEDS ORDERED: FAMOTIDINE20 MG PO (11:44)
[2018-05-04] MEDS ORDERED: DOCUSATE SODIU100 MG PO (11:44)
[2018-05-04 11:46] LABS: BASOPHIL (%) 0.2 % (0-1); EOSINOPHIL COUNT 0.2 K/uL (0-0.3); HEMATOCRIT 32.5 % (38.0-50.0); HEMOGLOBIN 10.4 G/DL (12.5-16.6); IMMATURE GRANULOCYTE (%) 0.7 % (0.0-0.7); LYMPHOCYTE (%) 5.3 % (15-42); LYMPHOCYTE COUNT 0.9 K/uL (1.0-2.8); MCH 27.7 PG (29.0-34.0); MCV 86.4 FL (86-99); MONOCYTE (%) 5.7 % (3-12); MONOCYTE COUNT 0.9 K/uL (0-0.8); NEUTROPHIL (%) 87.1 % (45-76); NEUTROPHIL COUNT 14.2 K/uL (1.8-6.4); PLATELET COUNT 314 K/uL (156-360); RBC DIS.WIDTH-CV 14.8 % (11.8-14.6); RBC DIS.WIDTH-SD 47.4 % (39-53); RED BLOOD COUNT 3.76 M/uL (4.00-5.50); WHITE BLOOD COUNT 16.3 K/uL (4.1-10.2)
[2018-05-04] MEDS ORDERED: SENNA LAX8.6 MG PO (11:47)
[2018-05-04] MEDS ORDERED: Vitamin B-12 SL (11:47)
[2018-05-04] MEDS ORDERED: FOLIC ACID1 MG PO (11:47)
[2018-05-04] MEDS ORDERED: ZOFRAN ODT4 MG PO (11:48)
[2018-05-04 11:58] VITALS: BP 138/91
[2018-05-04] MEDS ORDERED: PERCOCET 5/31 TABLET PO (12:00)
[2018-05-04 12:15] LABS: CHLORIDE 108 MEQ/L (99-109); CREATININE 0.9 MG/DL (0.6-1.3); GFR ESTIMATE (CALCULATED) > 59 mL/min/ (58.99-99999); GLUCOSE 124 mg/dL (70-99); POTASSIUM 3.8 MEQ/L (3.7-5.4); SODIUM 139 MEQ/L (136-147); UREA NITROGEN (BUN) 19 mg/dL (9-23)
[2018-05-04 15:58] VITALS: BP 128/80
[2018-05-04 19:15] VITALS: BP 151/83
[2018-05-05 01:30] VITALS: BP 152/74
[2018-05-05 04:15] VITALS: BP 131/88
[2018-05-05 08:05] VITALS: BP 127/83
[2018-05-05 09:05] LABS: BASOPHIL (%) 0.2 % (0-1); EOSINOPHIL (%) 0.7 % (0-5); EOSINOPHIL COUNT 0.1 K/uL (0-0.3); HEMATOCRIT 30.8 % (38.0-50.0); HEMOGLOBIN 9.6 G/DL (12.5-16.6); IMMATURE GRANULOCYTE (%) 0.8 % (0.0-0.7); LYMPHOCYTE COUNT 0.8 K/uL (1.0-2.8); MCH 26.9 PG (29.0-34.0); MCHC 31.2 G/DL (30.0-36.0); MCV 86.3 FL (86-99); MONOCYTE (%) 6.3 % (3-12); NEUTROPHIL COUNT 14.3 K/uL (1.8-6.4); PLATELET COUNT 286 K/uL (156-360); RBC DIS.WIDTH-SD 47.9 % (39-53); RED BLOOD COUNT 3.57 M/uL (4.00-5.50); WHITE BLOOD COUNT 16.5 K/uL (4.1-10.2)
[2018-05-05 09:31] LABS: CHLORIDE 109 MEQ/L (99-109); CREATININE 0.8 MG/DL (0.6-1.3); GFR ESTIMATE (CALCULATED) > 59 mL/min/ (58.99-99999); GLUCOSE 122 mg/dL (70-99); SODIUM 140 MEQ/L (136-147); UREA NITROGEN (BUN) 17 mg/dL (9-23)
[2018-05-05 11:06] VITALS: BP 135/77
[2018-05-05 15:26] VITALS: BP 134/81
[2018-05-05 19:48] VITALS: BP 122/70
[2018-05-06] VITALS: BP 124/86
[2018-05-06 03:15] VITALS: BP 124/88
[2018-05-06 05:34] LABS: BASOPHIL (%) 0.2 % (0-1); EOSINOPHIL (%) 1.2 % (0-5); EOSINOPHIL COUNT 0.2 K/uL (0-0.3); IMMATURE GRANULOCYTE (%) 0.7 % (0.0-0.7); LYMPHOCYTE (%) 6.2 % (15-42); MCH 26.6 PG (29.0-34.0); MCV 85.8 FL (86-99); MONOCYTE (%) 6.1 % (3-12); NEUTROPHIL (%) 85.6 % (45-76); NEUTROPHIL COUNT 13.9 K/uL (1.8-6.4); PLATELET COUNT 320 K/uL (156-360); RBC DIS.WIDTH-CV 15.1 % (11.8-14.6); RBC DIS.WIDTH-SD 47.8 % (39-53); RED BLOOD COUNT 3.38 M/uL (4.00-5.50); WHITE BLOOD COUNT 16.2 K/uL (4.1-10.2)
[2018-05-06 05:41] LABS: CHLORIDE 108 MEQ/L (99-109); CREATININE 0.8 MG/DL (0.6-1.3); GFR ESTIMATE (CALCULATED) > 59 mL/min/ (58.99-99999); GLUCOSE 95 mg/dL (70-99); POTASSIUM 3.9 MEQ/L (3.7-5.4); SODIUM 139 MEQ/L (136-147); UREA NITROGEN (BUN) 18 mg/dL (9-23)
[2018-05-06 07:03] VITALS: BP 126/72
[2018-05-06 12:23] VITALS: BP 122/64
[2018-05-06] MEDS ORDERED: LOVENOX120 MG/0.8 SC (13:28)
[2018-05-06] MEDS ORDERED: LOPRESSOR25 MG PO (13:28)
== END 2018-05-06 14:21 | DRG 653 ==
LOC: EME → EDBD 11:50 → EME 11:50 → EDOF 16:17 → 4EAST 16:17 → ENRESERV 16:20 → 4EAST 17:16 → ENPENDDIS 05-06 → 4EAST 05-06 13:35
PROVIDERS: Emergency Medicine; Family Medicine; Hospitalist; Internal Medicine; Physician Assistant Medical; Urology
PROC: 3E1K78Z Irrigation of Genitourinary Tract using Irrigating Substance, Via Natural or Artificial Opening (ICD-10-PCS; principal; 2018-04-06)
PROC: 30233N1 Transfusion of Nonautologous Red Blood Cells into Peripheral Vein, Percutaneous Approach (ICD-10-PCS; 2018-04-06)
PROC: 0TCB8ZZ Extirpation of Matter from Bladder, Via Natural or Artificial Opening Endoscopic (ICD-10-PCS; 2018-04-07)
PROC: 0TBB8ZX Excision of Bladder, Via Natural or Artificial Opening Endoscopic, Diagnostic (ICD-10-PCS; 2018-04-07)
PROC: 0TBB8ZX Excision of Bladder, Via Natural or Artificial Opening Endoscopic, Diagnostic (ICD-10-PCS; 2018-04-15)
PROC: 0T5B8ZZ Destruction of Bladder, Via Natural or Artificial Opening Endoscopic (ICD-10-PCS; 2018-04-15)
PROC: 0VT00ZZ Resection of Prostate, Open Approach (ICD-10-PCS; 2018-04-25)
PROC: 0TTB0ZZ Resection of Bladder, Open Approach (ICD-10-PCS; 2018-04-25)
PROC: 07TC0ZZ Resection of Pelvis Lymphatic, Open Approach (ICD-10-PCS; 2018-04-25)
PROC: 0T180ZC Bypass Bilateral Ureters to Ileocutaneous, Open Approach (ICD-10-PCS; 2018-04-25)
PROC: 0DTJ0ZZ Resection of Appendix, Open Approach (ICD-10-PCS; 2018-04-25)
PROC: 30233K1 Transfusion of Nonautologous Frozen Plasma into Peripheral Vein, Percutaneous Approach (ICD-10-PCS; 2018-04-25)
PROC: 3E0S3BZ Introduction of Anesthetic Agent into Epidural Space, Percutaneous Approach (ICD-10-PCS; 2018-04-25)
PROC: 00HU33Z Insertion of Infusion Device into Spinal Canal, Percutaneous Approach (ICD-10-PCS; 2018-04-25)
DX: C67.8 Malignant neoplasm of overlapping sites of bladder (principal); I26.99 Other pulmonary embolism without acute cor pulmonale; D62 Acute posthemorrhagic anemia; N17.9 Acute kidney failure, unspecified; E87.2 Acidosis; N13.0 Hydronephrosis with ureteropelvic junction obstruction; T81.72XA Complication of vein following a procedure, not elsewhere classified, initial encounter; T81.718A Complication of other artery following a procedure, not elsewhere classified, initial encounter; I82.432 Acute embolism and thrombosis of left popliteal vein; I82.4Z2 Acute embolism and thrombosis of unspecified deep veins of left distal lower extremity; K56.0 Paralytic ileus; N13.30 Unspecified hydronephrosis; D68.9 Coagulation defect, unspecified; R04.2 Hemoptysis; R31.0 Gross hematuria; N32.0 Bladder-neck obstruction; N30.81 Other cystitis with hematuria; N32.89 Other specified disorders of bladder; E53.8 Deficiency of other specified B group vitamins; I48.0 Paroxysmal atrial fibrillation; I48.2 Chronic atrial fibrillation; K59.00 Constipation, unspecified; Z77.090 Contact with and (suspected) exposure to asbestos; N39.490 Overflow incontinence; I95.9 Hypotension, unspecified; N42.9 Disorder of prostate, unspecified; K38.9 Disease of appendix, unspecified; Z80.1 Family history of malignant neoplasm of trachea, bronchus and lung
CPT/HCPCS: 71045; 71046; 71275; 74018; 74176; 76770; 80048; 80048 91; 80053; 80162; 81003; 82306; 82607; 82728; 82746; 82948; 83036; 83540; 83615; 83735; 83880; 83970; 84100; 84145 90; 84153; 84443; 84466; 84484; 85014; 85018; 85025; 85027; 85046; 85610; 85730; 86334; 86335; 86850; 86900; 86901; 86920; 87040; 87086 GA; 87641; 88304; 88305; 88307; 88309; 88331; 88341 TC; 88342 TC; 93005; 93306; 93970; 94799; 97530 GO; 97530 GP; 99281; 99285; A6214; J0131; J0330; J0696; J1100; J1160; J1170; J1644; J1650; J1940; J2250; J2370; J2405; J2710; J2765; J3010; J3420; J3480; J7030; J7040; J7050; J7120; J7643; P9016; P9017; S0020

== ENCOUNTER 2018-05-06 12:06 | Inpatient (IN) | payer OTHER ==
[~2018-05-06] VITALS: Ht 188 cm; Wt 108.6 kg
[~2018-05-06 12:06] MED LIST: DOCUSATE SODIU100 MG PO; DUONEB 2.5-0.5 M3 ML PEP; FAMOTIDINE20 MG PO; FOLIC ACID1 MG PO; PERCOCET 5/31 TABLET PO; SENNA LAX8.6 MG PO; TYLENOL REGULA325 MG PO; Vitamin B-12 SL; ZOFRAN ODT4 MG PO
[2018-05-06] MEDS ORDERED: LOVENOX120 MG/0.8 SC (13:28)
[2018-05-06] MEDS ORDERED: LOPRESSOR25 MG PO (13:28)
[2018-05-06 15:15] VITALS: BP 113/64
[2018-05-06 23:08] VITALS: BP 110/76
[2018-05-07 06:10] VITALS: BP 118/56
[2018-05-07 15:51] VITALS: BP 110/66
[2018-05-08 05:10] VITALS: BP 116/76
[2018-05-08 06:27] LABS: BASOPHIL (%) 0.3 % (0-1); EOSINOPHIL (%) 1.8 % (0-5); EOSINOPHIL COUNT 0.2 K/uL (0-0.3); HEMATOCRIT 24.5 % (38.0-50.0); HEMOGLOBIN 7.7 G/DL (12.5-16.6); IMMATURE GRANULOCYTE (%) 0.7 % (0.0-0.7); LYMPHOCYTE (%) 8.8 % (15-42); MCH 26.7 PG (29.0-34.0); MCHC 31.4 G/DL (30.0-36.0); MCV 85.1 FL (86-99); MONOCYTE (%) 6.8 % (3-12); MONOCYTE COUNT 0.8 K/uL (0-0.8); NEUTROPHIL (%) 81.6 % (45-76); NEUTROPHIL COUNT 9.5 K/uL (1.8-6.4); PLATELET COUNT 278 K/uL (156-360); RBC DIS.WIDTH-SD 46.6 % (39-53); RED BLOOD COUNT 2.88 M/uL (4.00-5.50); WHITE BLOOD COUNT 11.7 K/uL (4.1-10.2)
[2018-05-08 06:56] LABS: ALBUMIN 1.9 G/DL (3.2-4.8); ALKALINE PHOSPHATASE 74 IU/L (3-129); ALT (GPT) 18 IU/L (3-49); AST (GOT) 19 IU/L (2-34); CHLORIDE 109 MEQ/L (99-109); CREATININE 0.9 MG/DL (0.6-1.3); GFR ESTIMATE (CALCULATED) > 59 mL/min/ (58.99-99999); GLUCOSE 95 mg/dL (70-99); POTASSIUM 3.9 MEQ/L (3.7-5.4); SODIUM 140 MEQ/L (136-147); TOTAL BILIRUBIN 0.6 MG/DL (0.0-1.0); TOTAL PROTEIN 4.4 G/DL (6.4-8.3); UREA NITROGEN (BUN) 17 mg/dL (9-23)
[2018-05-08 15:30] VITALS: BP 123/81
[2018-05-09 06:04] LABS: BASOPHIL (%) 0.3 % (0-1); EOSINOPHIL COUNT 0.2 K/uL (0-0.3); HEMATOCRIT 25.2 % (38.0-50.0); HEMOGLOBIN 7.8 G/DL (12.5-16.6); IMMATURE GRANULOCYTE (%) 0.5 % (0.0-0.7); LYMPHOCYTE (%) 8.3 % (15-42); MCH 26.6 PG (29.0-34.0); MONOCYTE (%) 6.4 % (3-12); MONOCYTE COUNT 0.8 K/uL (0-0.8); NEUTROPHIL (%) 82.5 % (45-76); NEUTROPHIL COUNT 10.1 K/uL (1.8-6.4); PLATELET COUNT 324 K/uL (156-360); RBC DIS.WIDTH-CV 15.2 % (11.8-14.6); RBC DIS.WIDTH-SD 47.8 % (39-53); RED BLOOD COUNT 2.93 M/uL (4.00-5.50); WHITE BLOOD COUNT 12.3 K/uL (4.1-10.2)
[2018-05-09 06:34] VITALS: BP 130/77
[2018-05-09 06:38] LABS: CHLORIDE 109 MEQ/L (99-109); CREATININE 0.9 MG/DL (0.6-1.3); GFR ESTIMATE (CALCULATED) > 59 mL/min/ (58.99-99999); GLUCOSE 99 mg/dL (70-99); POTASSIUM 3.8 MEQ/L (3.7-5.4); SODIUM 139 MEQ/L (136-147); UREA NITROGEN (BUN) 17 mg/dL (9-23)
[2018-05-09 15:09] VITALS: BP 127/81
[2018-05-10 04:29] VITALS: BP 120/79
[2018-05-10 05:49] LABS: BASOPHIL (%) 0.3 % (0-1); EOSINOPHIL (%) 2.2 % (0-5); EOSINOPHIL COUNT 0.3 K/uL (0-0.3); HEMATOCRIT 25.4 % (38.0-50.0); HEMOGLOBIN 7.9 G/DL (12.5-16.6); LYMPHOCYTE (%) 8.7 % (15-42); MCH 26.7 PG (29.0-34.0); MCHC 31.1 G/DL (30.0-36.0); MCV 85.8 FL (86-99); MONOCYTE (%) 6.1 % (3-12); MONOCYTE COUNT 0.7 K/uL (0-0.8); NEUTROPHIL (%) 81.7 % (45-76); NEUTROPHIL COUNT 9.5 K/uL (1.8-6.4); PLATELET COUNT 354 K/uL (156-360); RBC DIS.WIDTH-CV 15.2 % (11.8-14.6); RBC DIS.WIDTH-SD 47.7 % (39-53); RED BLOOD COUNT 2.96 M/uL (4.00-5.50); WHITE BLOOD COUNT 11.6 K/uL (4.1-10.2)
[2018-05-10 06:10] LABS: CHLORIDE 107 MEQ/L (99-109); GFR ESTIMATE (CALCULATED) > 59 mL/min/ (58.99-99999); GLUCOSE 95 mg/dL (70-99); SODIUM 139 MEQ/L (136-147); UREA NITROGEN (BUN) 18 mg/dL (9-23)
[2018-05-10 15:19] VITALS: BP 121/71
[2018-05-11 05:01] VITALS: BP 119/73
[2018-05-11 15:30] VITALS: BP 112/71
[2018-05-12 07:30] VITALS: BP 133/83
[2018-05-12 15:27] VITALS: BP 115/72
[2018-05-13 04:48] VITALS: BP 120/76
[2018-05-13 06:48] LABS: BASOPHIL (%) 0.3 % (0-1); EOSINOPHIL (%) 4.1 % (0-5); EOSINOPHIL COUNT 0.5 K/uL (0-0.3); HEMOGLOBIN 7.9 G/DL (12.5-16.6); IMMATURE GRANULOCYTE (%) 0.8 % (0.0-0.7); LYMPHOCYTE (%) 9.5 % (15-42); LYMPHOCYTE COUNT 1.2 K/uL (1.0-2.8); MCH 26.2 PG (29.0-34.0); MCHC 30.4 G/DL (30.0-36.0); MCV 86.1 FL (86-99); MONOCYTE (%) 7.3 % (3-12); NEUTROPHIL COUNT 10.2 K/uL (1.8-6.4); PLATELET COUNT 332 K/uL (156-360); RBC DIS.WIDTH-CV 15.7 % (11.8-14.6); RBC DIS.WIDTH-SD 49.1 % (39-53); RED BLOOD COUNT 3.02 M/uL (4.00-5.50); WHITE BLOOD COUNT 13.1 K/uL (4.1-10.2)
[2018-05-13 07:07] LABS: CHLORIDE 108 MEQ/L (99-109); CREATININE 1.1 MG/DL (0.6-1.3); GFR ESTIMATE (CALCULATED) > 59 mL/min/ (58.99-99999); GLUCOSE 94 mg/dL (70-99); POTASSIUM 4.3 MEQ/L (3.7-5.4); SODIUM 140 MEQ/L (136-147); UREA NITROGEN (BUN) 20 mg/dL (9-23)
[2018-05-13 16:20] VITALS: BP 114/70
[2018-05-14 05:07] VITALS: BP 127/76
[2018-05-14 06:14] LABS: BASOPHIL (%) 0.4 % (0-1); BASOPHIL COUNT 0.1 K/uL (0-0.1); EOSINOPHIL (%) 4.2 % (0-5); EOSINOPHIL COUNT 0.5 K/uL (0-0.3); HEMATOCRIT 27.1 % (38.0-50.0); HEMOGLOBIN 8.1 G/DL (12.5-16.6); IMMATURE GRANULOCYTE (%) 0.8 % (0.0-0.7); LYMPHOCYTE (%) 9.1 % (15-42); LYMPHOCYTE COUNT 1.2 K/uL (1.0-2.8); MCH 26.1 PG (29.0-34.0); MCHC 29.9 G/DL (30.0-36.0); MCV 87.4 FL (86-99); MONOCYTE (%) 6.3 % (3-12); MONOCYTE COUNT 0.8 K/uL (0-0.8); NEUTROPHIL (%) 79.2 % (45-76); NEUTROPHIL COUNT 10.1 K/uL (1.8-6.4); PLATELET COUNT 329 K/uL (156-360); RBC DIS.WIDTH-CV 15.7 % (11.8-14.6); RBC DIS.WIDTH-SD 50.3 % (39-53); WHITE BLOOD COUNT 12.7 K/uL (4.1-10.2)
[2018-05-14 06:34] LABS: CHLORIDE 109 MEQ/L (99-109); CREATININE 1.1 MG/DL (0.6-1.3); GFR ESTIMATE (CALCULATED) > 59 mL/min/ (58.99-99999); GLUCOSE 95 mg/dL (70-99); POTASSIUM 4.6 MEQ/L (3.7-5.4); SODIUM 140 MEQ/L (136-147); UREA NITROGEN (BUN) 19 mg/dL (9-23)
[2018-05-14 07:47] VITALS: BP 119/83
[2018-05-14 15:09] VITALS: BP 112/71
[2018-05-15 05:52] VITALS: BP 132/90
[2018-05-15 06:43] LABS: BASOPHIL (%) 0.3 % (0-1); EOSINOPHIL (%) 3.6 % (0-5); EOSINOPHIL COUNT 0.5 K/uL (0-0.3); HEMATOCRIT 26.6 % (38.0-50.0); HEMOGLOBIN 8.1 G/DL (12.5-16.6); IMMATURE GRANULOCYTE (%) 0.7 % (0.0-0.7); LYMPHOCYTE (%) 8.4 % (15-42); LYMPHOCYTE COUNT 1.1 K/uL (1.0-2.8); MCH 26.1 PG (29.0-34.0); MCHC 30.5 G/DL (30.0-36.0); MCV 85.8 FL (86-99); MONOCYTE (%) 6.6 % (3-12); MONOCYTE COUNT 0.9 K/uL (0-0.8); NEUTROPHIL (%) 80.4 % (45-76); NEUTROPHIL COUNT 10.9 K/uL (1.8-6.4); PLATELET COUNT 347 K/uL (156-360); RBC DIS.WIDTH-CV 15.7 % (11.8-14.6); RBC DIS.WIDTH-SD 49.2 % (39-53); WHITE BLOOD COUNT 13.5 K/uL (4.1-10.2)
[2018-05-15 07:01] LABS: CHLORIDE 107 MEQ/L (99-109); CREATININE 1.1 MG/DL (0.6-1.3); GFR ESTIMATE (CALCULATED) > 59 mL/min/ (58.99-99999); GLUCOSE 99 mg/dL (70-99); POTASSIUM 4.3 MEQ/L (3.7-5.4); SODIUM 138 MEQ/L (136-147); UREA NITROGEN (BUN) 21 mg/dL (9-23)
[2018-05-15 07:54] VITALS: BP 145/91
[2018-05-15 15:24] VITALS: BP 117/71
[2018-05-15 17:57] LABS: INTER. NORMALIZED RATIO 1.4
[2018-05-16 05:29] VITALS: BP 126/69
[2018-05-16 06:49] LABS: INTER. NORMALIZED RATIO 1.4
[2018-05-16 07:47] VITALS: BP 125/65
[2018-05-16 15:54] VITALS: BP 105/72
[2018-05-17 04:27] VITALS: BP 124/69
[2018-05-17 05:56] LABS: INTER. NORMALIZED RATIO 1.6
[2018-05-17 07:47] LABS: HEMATOCRIT 25.4 % (38.0-50.0); HEMOGLOBIN 7.9 G/DL (12.5-16.6); MCH 26.9 PG (29.0-34.0); MCHC 31.1 G/DL (30.0-36.0); MCV 86.4 FL (86-99); PLATELET COUNT 320 K/uL (156-360); RBC DIS.WIDTH-SD 50.4 % (39-53); RED BLOOD COUNT 2.94 M/uL (4.00-5.50); WHITE BLOOD COUNT 16.3 K/uL (4.1-10.2)
[2018-05-17 07:55] LABS: CHLORIDE 106 MEQ/L (99-109); POTASSIUM 4.1 MEQ/L (3.7-5.4); SODIUM 138 MEQ/L (136-147)
[2018-05-17 08:00] LABS: CREATININE 1.2 MG/DL (0.6-1.3); GFR ESTIMATE (CALCULATED) > 59 mL/min/ (58.99-99999); GLUCOSE 112 mg/dL (70-99); UREA NITROGEN (BUN) 22 mg/dL (9-23)
[2018-05-17 08:03] LABS: TROP-I INTERPRETATION NEGATIVE; TROPONIN-I 0.02 ng/mL (0.0-0.30)
[2018-05-17 13:05] LABS: APPEARANCE CLOUDY ((CLEAR)); BILIRUBIN NEGATIVE; BLOOD LARGE; GLUCOSE (STRIP) NEGATIVE; KETONES NEGATIVE; LEUKOCYTES MODERATE; NITRITE NEGATIVE; PROTEIN (STRIP) 100; SPECIFIC GRAVITY 1.031 (1.000-1.030)
[2018-05-17 13:06] LABS: COLOR RED ((YELLOW))
[2018-05-17 13:23] LABS: RED BLOOD CELLS TNTC /HPF (0-5)
[2018-05-17 13:24] LABS: BACTERIA 1+ /HPF; EPITHELIAL CELLS RARE /HPF; MUCUS NONE SEEN /LPF; UCUL ADDED? YES; WHITE BLOOD CELLS 20-30 /HPF (0-5)
== END 2018-05-17 12:51 | DRG 945 ==
LOC: 3WEST 12:06 → ENPENDDIS 05-14 → 3WEST 05-17 11:14 → EDPENDDISDT 05-18
PROVIDERS: Family Medicine Sports Medicine; Physical Medicine & Rehabilitation Pain Medicine; Psychiatry & Neurology Neurology
PROC: F07M0ZZ Range of Motion and Joint Mobility Treatment of Musculoskeletal System - Whole Body (ICD-10-PCS; principal; 2018-05-06)
DX: R53.1 Weakness (principal); J18.9 Pneumonia, unspecified organism; N13.6 Pyonephrosis; G72.81 Critical illness myopathy; D62 Acute posthemorrhagic anemia; R31.0 Gross hematuria; I48.91 Unspecified atrial fibrillation; I26.99 Other pulmonary embolism without acute cor pulmonale; Z77.090 Contact with and (suspected) exposure to asbestos; C67.8 Malignant neoplasm of overlapping sites of bladder; Z93.6 Other artificial openings of urinary tract status; I82.491 Acute embolism and thrombosis of other specified deep vein of right lower extremity; I82.402 Acute embolism and thrombosis of unspecified deep veins of left lower extremity
CPT/HCPCS: 71275; 80048; 80053; 81003; 83605; 84484; 85025; 85027; 85610; 85730; 87086; 93005; 93971; 97110 GO; 97530 GP; J1650